=== PATIENT | female | born 1960 | race Caucasian/White ===

== ENCOUNTER 2018-03-10 17:54 | Observation (INO) ==
--- NOTE | 2018-03-10 18:08 | Emergency Department Note ---
Disposition Clinical Impression: Chest pain Qualifiers: Chest pain type: unspecified Qualified Code(s): R07.9 - Chest pain, unspecified Headache Qualifiers: Headache chronicity pattern: unspecified pattern Intractability: not intractable Disposition: Admitted As Inpatient Condition: Fair Referrals: Deniz Duval MD [Primary Care Provider] - Forms: ED Satisfaction Letter Time of Disposition: 20:55 Chest Pain HPI - General Chief Complaint: ED Chest Pain Stated Complaint: chest pain Time Seen by Provider: 03/10/18 18:05 Source: patient Mode of arrival: ambulatory Limitations: no limitations Vital Signs Reviewed: Yes Nursing Notes Reviewed: Yes - History of Present Illness HPI Narrative: 57 y/o F with history of type II DM and HTN presents with complaints of intermittentmidsternal pins and needles chest pain for 3 days, constant GREGORY for 4 days and upper abdominal bloating. She rates the GREGORY as an 8/10 going from the top of her head down the back of her head un-relieved by Tylenol at home. She describes the GREGORY as pounding similar to when she has taken Nitro in the past. Along with the pain she has been feeling extremely fatigued with mild intermittent nausea without vomiting. Patient's DM medication has been in flux over the last few months, changing several times secondary to adverse effects. She last tried Treciba which she states caused similar symptoms of chest pain and was therefore discontinued. She was started on Lantus 02/23 and had been doing well until 3-4 days ago. She notes some dyspnea with the chest pains. Of note, patient's DM medications are handled by a combatant swimmer in [place] and patient has not contacted them concerning these complaints at this time. PMH: Hypertension, diabetes mellitus, obesity. ROS: Positive: As above Negative: fevers, chills, palpitations, vomiting, abdominal pain, diarrhea, trouble urinating, hematuria, hematochezia, swelling, visual changes, numbness, falls or other concerning symptoms. Severity scale (1-10): 8 - Related Data Allergies Allergy/AdvReac Type Severity Reaction Status Date / Time Paroxetine [From Paxil] Allergy Palpitation Verified 03/10/18 18:10 s azithromycin AdvReac See Verified 03/10/18 18:10 Comments dulaglutide [From Trulicity] AdvReac Redness of Verified 10/06/18 18:10 Skin empagliflozin AdvReac See Verified 03/10/18 18:10 [From Jardiance] Comments insulin degludec AdvReac Palpitation Verified 03/10/18 18:10 [From Tresiba FlexTouch s U-100] latex AdvReac See Verified 03/10/18 18:04 Comments NSAIDS (Non-Steroidal AdvReac Chest Pain Verified 03/10/18 18:04 Anti-Inflamma simvastatin AdvReac See Verified 03/10/18 18:04 Comments sitagliptin [From Januvia] AdvReac Rash Verified 03/10/18 18:04 All systems ED: reviewed and negative except as stated. Review of Systems: As Per HPI Chest Pain PMH - Past Medical History Medical history: Reports: diabetes, hyperlipidemia, hypertension, liver disease , thyroid disease, other Surgical history: Reports: , cholecystectomy, hysterectomy Psychiatric history: Reports: anxiety, depression - Social History Smoking Status: Never smoker Alcohol use: Reports: none Drug use: Reports: none Physical Exam Vital Signs Reviewed General: Patient is alert, oriented, and in no acute distress. Head: atraumatic, normocephalic Eye: normal appearance, PERRL, EOMI, no scleral icterus, no conjunctival injection ENT: mucous membranes moist, normal external ear exam Neck: normal inspection, trachea midline, full ROM Chest: normal inspection, symmetric chest rise Respiratory: Good respiratory effort. Bilateral breath sounds are clear without wheezing, crackles, or rhonchi. Cardiovascular: Regular rate and rhythm. No clicks, rubs, gallops, or murmors. Normal heart sounds. Abdomen: Bowel sounds present normoactive x-4 quadrants. Abdomen is soft, nondistended. Mild to moderate subxyphoid/epigastric tenderness. No guarding or rebound. Musculoskeletal: Spontaneously moving all extremities. Skin: warm, dry, intact. Neuro: Alert and oriented x4. Sensation light touch intact. Psych: Patient's affect is appropriate for situation. Course Course Narrative: Holter monitor March 2017: 1. Baseline rhythm is normal sinus throughout recording. 2. Frequent PACs. Rare PVCs. 3. Several episodes of nonsustained SVT- probable atrial tachycardia. 4. No ventricular arrhythmias. No pauses. 5. During pt reported symptoms, rhythm is normal sinus, noemal sinus with 3 beats of SVT, as well as strips that are uninterpretable due to significant artifact. Electronically Signed On 03-21-2017 14:56:15 EDT by Zaira Sukhi EKG dated 03/10/20 1818:17 interpreted as sinus rhythm with a rate of 79. NC 142. QTC 444. Left axis. Left anterior fascicular block. Nonspecific ST-T changes. Rare PAC. No previous EKG for comparison. EKG shows no acute ischemic changes as above. Chest x-ray is unremarkable. Troponin below upper limit of normal. D-dimer is elevated in the 700s. CTA chest shows no acute abnormalities. CT and pelvis without contrast shows no acute abnormalities. Patient's headache persists however, her chest pain has subsided. Given the patient's comorbidities of hypertension, obesity, diabetes and the atypical nature of her chest pain, recommend that she come in to the hospital for rule out ACS. I discussed the above with the admitting hospitalist. He agrees to accept the patient for chest pain rule out ACS. Chest X-Ray 03/10/18 18:32 IMPRESSION: No acute process. D/ / Maldonado Brewster MD / Maldonado Brewster MD Interpreting Provider: Maldonado Brewster MD Abdomen/Pelvis CT 03/10/18 18:57 IMPRESSION: No acute abnormality in the chest, abdomen or pelvis. No acute abnormality or aneurysm of the thoracic aorta. No acute central pulmonary emboli. Low lung volumes. Mild prominence of the right renal collecting system, nonspecific. D/ / Tomas Hewitt MD / Tomas Hewitt MD Interpreting Provider: Tomas Hewitt MD Chest CTA 03/10/18 19:26 IMPRESSION: No acute abnormality in the chest, abdomen or pelvis. No acute abnormality or aneurysm of the thoracic aorta. No acute central pulmonary emboli. Low lung volumes. Mild prominence of the right renal collecting system, nonspecific. D/ / Tomas Hewitt MD / Tomas Hewitt MD Interpreting Provider: Tomas Hewitt MD Vital Signs Temperature 98.6 F 03/10/18 18:00 Pulse Rate 87 03/10/18 18:00 Respiratory Rate 18 03/10/18 18:00 Blood Pressure 149/77 03/10/18 18:00 O2 Sat by Pulse Oximetry 97 03/10/18 18:00 Temperature 98.6 F 03/10/18 18:32 Pulse Rate 77 03/10/18 21:05 Respiratory Rate 18 03/10/18 21:05 Blood Pressure 123/58 03/10/18 21:05 O2 Sat by Pulse Oximetry 98 03/10/18 21:05 Oxygen Delivery Oxygen Delivery Room Air Chest Pain - Lab Data Result diagrams: 03/10/18 18:42 03/10/18 18:26 Lab Results 03/10/18 03/10/18 03/10/18 Range/Units 18:26 18:26 18:32 WBC (4.3-11.1) K/mcL RBC (3.82-4.97) M/mcL Hgb (11.5-15.4) g/dL Hct (35.3-44.9) % MCV (83.0-100.0) fL MCH (28.0-33.3) pg MCHC (31.6-35.5) g/dL RDW (11.5-14.5) % Plt Count (140-400) K/mcL MPV (9.4-12.4) fL Immature Gran % (0-4) % Seg Neutrophils % % Lymphocytes % % Monocytes % % Eosinophils % % Basophils % % Neutrophils # (1.6-8.9) K/mcL Lymphocytes # (0.6-4.6) K/mcL Monocytes # (0.0-1.3) K/mcL Eosinophils # (0.0-0.6) K/mcL Basophils # (0.0-0.2) K/mcL PT 10.9 (9.4-12.1) Seconds INR 1.0 APTT 29.5 (26.0-36.0) Seconds D-Dimer 736 H (0-500) ng/mLFEU Sodium 137 (136-145) mEq/L Potassium 4.0 (3.5-5.1) mEq/L Chloride 102 (98-107) mEq/L Carbon Dioxide 27 (23-29) mEq/L BUN 23 H (6-20) mg/dL Creatinine 0.91 (0.60-1.20) mg/dL Est GFR ( Amer) > 60 (> 60) Est GFR (Non-Af Amer) > 60 (> 60) BUN/Creatinine Ratio 25 (6-26) Glucose 194 H (70-105) mg/dL Calculated Osmolality 293 (280-300) Calcium 9.8 (8.6-10.3) mg/dL Total Bilirubin 0.4 (0.3-1.0) mg/dL Direct Bilirubin 0.1 (0.0-0.2) mg/dL Indirect Bilirubin 0.3 (0.0-1.2) mg/dL AST 10 L (13-39) Units/L ALT 13 (7-52) Units/L Alkaline Phosphatase 67 (34-104) Units/L Troponin I < 0.03 (< 0.04) ng/mL B-Natriuretic Peptide 51 (Less than 100) pg/mL Serum Total Protein 6.3 L (6.4-8.9) g/dL Albumin 4.3 (3.5-5.7) g/dL Globulin 2.0 L (2.4-3.5) g/dL Albumin/Globulin Ratio 2.2 (1.1-2.2) Lipase 26 (11-82) Units/L 03/10/18 Range/Units 18:42 WBC 10.8 (4.3-11.1) K/mcL RBC 4.22 (3.82-4.97) M/mcL Hgb 11.2 L (11.5-15.4) g/dL Hct 35.3 (35.3-44.9) % MCV 83.6 (83.0-100.0) fL MCH 26.5 L (28.0-33.3) pg MCHC 31.7 (31.6-35.5) g/dL RDW 14.5 (11.5-14.5) % Plt Count 238 (140-400) K/mcL MPV 11.1 (9.4-12.4) fL Immature Gran % 0.4 (0-4) % Seg Neutrophils % 64.2 % Lymphocytes % 23.5 % Monocytes % 5.2 % Eosinophils % 6.3 % Basophils % 0.4 % Neutrophils # 6.9 (1.6-8.9) K/mcL Lymphocytes # 2.5 (0.6-4.6) K/mcL Monocytes # 0.6 (0.0-1.3) K/mcL Eosinophils # 0.7 H (0.0-0.6) K/mcL Basophils # 0.0 (0.0-0.2) K/mcL PT (9.4-12.1) Seconds INR APTT (26.0-36.0) Seconds D-Dimer (0-500) ng/mLFEU Sodium (136-145) mEq/L Potassium (3.5-5.1) mEq/L Chloride (98-107) mEq/L Carbon Dioxide (23-29) mEq/L BUN (6-20) mg/dL Creatinine (0.60-1.20) mg/dL Est GFR ( Amer) (> 60) Est GFR (Non-Af Amer) (> 60) BUN/Creatinine Ratio (6-26) Glucose (70-105) mg/dL Calculated Osmolality (280-300) Calcium (8.6-10.3) mg/dL Total Bilirubin (0.3-1.0) mg/dL Direct Bilirubin (0.0-0.2) mg/dL Indirect Bilirubin (0.0-1.2) mg/dL AST (13-39) Units/L ALT (7-52) Units/L Alkaline Phosphatase (34-104) Units/L Troponin I (< 0.04) ng/mL B-Natriuretic Peptide (Less than 100) pg/mL Serum Total Protein (6.4-8.9) g/dL Albumin (3.5-5.7) g/dL Globulin (2.4-3.5) g/dL Albumin/Globulin Ratio (1.1-2.2) Lipase (11-82) Units/L Heart Score - Score History: Slightly Suspicious EKG: Non Specific repolarisation Disturbance Age: 45-65 Risk Factors: Equal/Greater than 3 risk factor or history of atherosclerotic disease Troponin: Less than normal limit HEART Score Total: 4 Attestation Statement - Attestation Attestation: Patient was seen with resident physician. I reviewed the history, physical, assessment and plan, and agree with the findings. I also personally evaluated this patient and had [id number] time with this patient. 57-year-old female presents emergency Department chief complaint of headache chest pain and epigastric pain. Patient states that she gets these symptoms often when she has changes to her type 2 diabetes medicines. She said she goes through changes often. Said the headache has been ongoing for a couple of days. She says it feels like she took a nitroglycerin in terms of its nature. The chest pain she describes is midsternal sharp radiating through to the back and associated with shortness of breath and no diaphoresis. The epigastric pain she said gets worse when she does need she gets increased bloating with focus Fernandez in the epigastric area, she says she has had problems with that spot since changing one of her diabetic medications. No diarrhea no vomiting. Review of systems as above remainder negative. Physical exam vital signs are stable. ENT unremarkable. Head is nontender. No nuchal rigidity. Heart regular rhythm and rate. Chest wall is stable. Lungs are clear. Abdomen is soft there is tenderness in midepigastric area without guarding rigidity. Bowel sounds are present. Extremities unremarkable neurologically intact and skin no rashes. ED course we will do a cardiac workup in addition to an abdominal pain workup. I am not convinced this is cardiac in nature as could just be medication reaction. Her EKG does not show acute ischemic changes. I will also check a d- dimer for possibilities of PE. D-dimer was positive. CTA of the abdomen and CT of the pelvis are negative for abnormalities. Patient's pain was somewhat improved but we did do several doses of medication. With the patient's age and risk factors of diabetes and this history of chest pain we opted to admit the patient we did speak with the patient about this. She agreed for admission. I will contact the hospitalist service to arrange for admission. Hemodynamically she remained stable in the emergency department and slowly improving throughout her stay. Agree with resident physician assessment and plan.
[2018-03-10 18:46] LABS: Basophils % 0.4 %; Eosinophils # 0.7 K/mcL (0.0-0.6); Eosinophils % 6.3 %; Hematocrit 35.3 % (35.3-44.9); Hemoglobin 11.2 g/dL (11.5-15.4); Immature Granulocytes % 0.4 % (0-4); Lymphocytes # 2.5 K/mcL (0.6-4.6); Lymphocytes % 23.5 %; Mean Corpuscular HGB Conc 31.7 g/dL (31.6-35.5); Mean Corpuscular Hemoglobin 26.5 pg (28.0-33.3); Mean Corpuscular Volume 83.6 fL (83.0-100.0); Mean Platelet Volume 11.1 fL (9.4-12.4); Monocytes # 0.6 K/mcL (0.0-1.3); Monocytes % 5.2 %; Neutrophils # 6.9 K/mcL (1.6-8.9); Platelet Count 238 K/mcL (140-400); Red Blood Count 4.22 M/mcL (3.82-4.97); Red Cell Distribution Width 14.5 % (11.5-14.5); Segmented Neutrophils % 64.2 %
[2018-03-10 18:52] LABS: Prothrombin Time 10.9 Seconds (9.4-12.1)
[2018-03-10] MEDS ORDERED: Pantoprazole 40 MG VIAL IVP ONE (18:52)
[2018-03-10 18:55] LABS: Activated Partial Thrombo Time 29.5 Seconds (26.0-36.0)
[2018-03-10 19:06] LABS: BUN/Creatinine Ratio 25 (6-26); Blood Urea Nitrogen 23 mg/dL (6-20); Calcium 9.8 mg/dL (8.6-10.3); Carbon Dioxide 27 mEq/L (23-29); Chloride 102 mEq/L (98-107); Glucose 194 mg/dL (70-105); Osmolality,Calculated 293 (280-300); Sodium 137 mEq/L (136-145); Troponin I < 0.03 ng/mL (< 0.04); eGFR For Non-African Americans > 60 (> 60)
[2018-03-10 19:23] LABS: Alanine Aminotransferase 13 Units/L (7-52); Albumin 4.3 g/dL (3.5-5.7); Albumin/Globulin Ratio 2.2 (1.1-2.2); Alkaline Phosphatase 67 Units/L (34-104); Aspartate Amino Transferase 10 Units/L (13-39); Bilirubin,Direct 0.1 mg/dL (0.0-0.2); Bilirubin,Indirect 0.3 mg/dL (0.0-1.2); Bilirubin,Total 0.4 mg/dL (0.3-1.0); Lipase 26 Units/L (11-82); Total Protein 6.3 g/dL (6.4-8.9)
[2018-03-10] MEDS ORDERED: Isovue-370 500 ML INFUS..BTL IV ONE (19:26)
[2018-03-10] MEDS ORDERED: Aspirin 325 MG TABLET PO ONE (20:54)
[2018-03-11] MEDS ORDERED: Naloxone 0.4 MG/ML INJ IVP PRN (00:09)
[2018-03-11] MEDS ORDERED: D5% in Water 1,000 ML IVC PRN (00:13)
[2018-03-11] MEDS ORDERED: Dextrose Gel 15 GM/37.5 ML TUBE PO PRN ×2 (00:13)
[2018-03-11] MEDS ORDERED: *HR* Dextrose 50 % in Water (Syg) 50 ML SYRINGE IVP PRN (00:13)
[2018-03-11] MEDS ORDERED: Insulin DETEMIR 100 UNIT/ML X5UNITS SQ SCH (00:15)
[2018-03-11 01:15] LABS: Hematocrit 30.9 % (35.3-44.9); Hemoglobin 9.7 g/dL (11.5-15.4); Mean Corpuscular HGB Conc 31.4 g/dL (31.6-35.5); Mean Corpuscular Hemoglobin 26.3 pg (28.0-33.3); Mean Corpuscular Volume 83.7 fL (83.0-100.0); Platelet Count 198 K/mcL (140-400); Red Blood Count 3.69 M/mcL (3.82-4.97); Red Cell Distribution Width 14.6 % (11.5-14.5)
[2018-03-11 01:28] LABS: BUN/Creatinine Ratio 22 (6-26); Blood Urea Nitrogen 20 mg/dL (6-20); Calcium 9.4 mg/dL (8.6-10.3); Carbon Dioxide 25 mEq/L (23-29); Chloride 103 mEq/L (98-107); Glucose 211 mg/dL (70-105); Osmolality,Calculated 291 (280-300); Sodium 136 mEq/L (136-145); eGFR For Non-African Americans > 60 (> 60)
[2018-03-11] MEDS ORDERED: Acetaminophen 325 MG TABLET PO PRN (01:43)
[2018-03-11] MEDS ORDERED: Insulin LISPRO 300 UNITS/3 ML VIAL SQ SCH (06:00)
--- NOTE | 2018-03-11 08:25 | Internal Med History&Physical ---
Date of Encounter: 03/10/18 Time of Encounter: 23:15 Internal Medicine - H&P: HPI Chief complaint: Chest pain Admitted From: Emergency Dept Plans for Post Hospital Care: Home History of present illness: Ms. Jha is a 57 year old female Patient presented to the ER with a 2-3 day history of headache and shap pains in the center of her chest. She says that it feels like a sharp stabbing pain that goes straight through. Worse with inspiration. 2 days ago it seemed to be improving, but she noticed that she was more tired as well. She spent the majority of the day resting, but at dinner time she took her nightly insulin at around 6pm and about 1 hour later she had "jumping movements with heart palpitations." She went to bed that night and woke up the morning of the day of admission and while working outside with her she had the chest pain again. She was concerned at this point, and decided to come into the hospital for evaluation. In the ER, CBC, BMP and troponin were within normal limits. Chest x-ray showed no acute process. D dimer was elevated but chest CT angio was negative for PE. EKG showed no acute ischemic changes. She was admitted for further monitoring and workup. Upon my assessment patient states that her pain has resolved.She denies nausea, vomiting, diarrhea, constipation, and abdominal pain. She states that she thinks that she ad a stress test about 1 year ago in [place], but does not remember the result. She does not think she has history of heart problems. She also states that her primary doctor has been trying to adjust her diabetes medicine, as she has had several complications with some of the injectable type insulins. She says that Trulicity caused an ulcer to develop on her esophagus. She currently takes lantus and mealtime insulin which have not caused problems for her yet. Past Med Surg Social Fam HX - Past Medical History Medical history: diabetes, hyperlipidemia, hypertension, other Additional medical history: DJD Psychiatric history: anxiety, depression - Past Surgical History Surgical History: , cholecystectomy, hysterectomy, knee replacement, orthopedic, other Additional surgical history: tumor removed from foot. - Social History Smoking Status: Former smoker Smokeless Tobacco Status: No Alcohol use: none Drug use: none Internal Medicine - H&P: Meds Glimepiride [Amaryl] 4 mg PO BID 03/11/18 [History] Lisinopril-HCTZ 20-12.5 [Prinzide 20-12.5] 1 each PO DAILY 03/11/18 [History] Metoprolol Tartrate 50 mg PO BID 03/11/18 [History] Omeprazole [PriLOSEC] 40 mg PO DAILY 03/11/18 [History] Rosuvastatin Calcium [Crestor] 20 mg PO HS 03/11/18 [History] 3 Allergy/AdvReac Type Severity Reaction Status Date / Time Paroxetine [From Paxil] Allergy Palpitation Verified 03/10/18 18:10 s azithromycin AdvReac See Verified 03/10/18 18:10 Comments dulaglutide [From Trulicity] AdvReac Redness of Verified 03/10/18 18:10 Skin empagliflozin AdvReac See Verified 03/10/18 18:10 [From Jardiance] Comments insulin degludec AdvReac Palpitation Verified 03/10/18 18:10 [From Tresiba FlexTouch s U-100] latex AdvReac See Verified 03/10/18 18:04 Comments NSAIDS (Non-Steroidal AdvReac Chest Pain Verified 03/10/18 18:04 Anti-Inflamma simvastatin AdvReac See Verified 03/10/18 18:04 Comments sitagliptin [From Januvia] AdvReac Rash Verified 03/10/18 18:04 All Systems PM: A 10-system review of systems was performed and is negative for pertinent findings except as documented above in the HPI. - Constitutional Vitals: Temp Pulse Resp BP Pulse Ox 97.8 F 71 16 116/69 97 03/11/18 08:04 03/11/18 08:04 03/11/18 08:04 03/11/18 08:04 03/11/18 08:04 General appearance: Present: cooperative, A&O X 3, pleasant, no acute distress, answers questions appropriately Exam: As above. - Head Head exam: Present: normal inspection - Eye Eye exam: Present: EOMI, normal appearance - Neck Neck exam general surgery: Present: full ROM - Respiratory Respiratory exam: Present: CTAB. Absent: chest wall tenderness, decreased breath sounds, respiratory distress, wheezes - Cardiovascular Cardiovascular exam: Present: RRR. Absent: diastolic murmur, systolic murmur - GI/Abdominal GI/Abdominal exam: Present: normal bowel sounds, soft. Absent: tenderness - Extremities Exam Extremities exam: Present: warm, radial pulses palpable and symmetrical. Absent : pedal edema, tenderness - Neurological Exam Neurological exam: Present: no focal deficits, strengths equal and symetr throughout. Absent: motor sensory deficit, facial droop, speech deficit - Skin Skin exam: Present: dry, normal color, warm Internal Med - H&P Results - Labs CBC & Chem 7: 03/11/18 00:46 03/11/18 00:46 Labs: Short CBC 03/11/18 Range/Units 00:46 WBC 9.9 (4.3-11.1) K/mcL Hgb 9.7 L D (11.5-15.4) g/dL Hct 30.9 L (35.3-44.9) % Plt Count 198 (140-400) K/mcL BMP 03/11/18 00:46 Sodium 136 Potassium 4.0 Chloride 103 Carbon Dioxide 25 BUN 20 Creatinine 0.93 Glucose 211 H Calcium 9.4 Cardiac Enzymes 03/11/18 03/11/18 Range/Units 00:46 06:02 Troponin I < 0.03 < 0.03 (< 0.04) ng/mL - Assessment and plan (1) Chest pain Current Visit: Yes Status: Acute Assessment and plan: Now resolved. Trops negative, EKG unremarkable. Continue to trend troponins wind up worker Echocardiogram in AM Recent stress test 1 year ago in [place]. Qualifiers: Chest pain type: unspecified Qualified Code(s): R07.9 - Chest pain, unspecified (2) Headache Current Visit: Yes Status: Acute Assessment and plan: Now resolved. Acetaminophen for pain. Qualifiers: Headache chronicity pattern: unspecified pattern Intractability: not intractable Qualified Code(s): R51 - Headache (3) Diabetes Current Visit: Yes Status: Acute Assessment and plan: Sliding scale insulin with meals and at night time babysitter sugars Basal insulin at night. Diabetic/cardiac diet when eating. Qualifiers: Diabetes mellitus penitentiary insulin use: with intermediate school teacher use Diabetes mellitus complication status: without complication Qualified Code(s): E11.9 - Type 2 diabetes mellitus without complications; Z79.4 - residential (current) use of insulin (4) DVT prophylaxis Current Visit: Yes Status: Acute Assessment and plan: Heparin subq. - Time Spent With Patient Total time spent is greater than 50% in coordination of care (as documented) at patient's floor/unit and/or counseling patient: Greater than 35 minutes
[2018-03-11 12:20] VITALS: BP 134/89
--- NOTE | 2018-03-11 13:04 | Discharge Summary ---
- NOTES TO OUTPATIENT PROVIDER Notes to Outpatient Provider: f/u with PCP in one week. Please go for out pt exercise stress test Orders not resulted at time of discharge: Pending orders 03/11/18 00:14 EV echocardiogram Routine Date of Encounter: 03/11/18 Time of Encounter: 12:56 - Discharge Diagnosis (1) Chest pain Priority: Primary Status: Acute Qualifiers: Chest pain type: unspecified Qualified Code(s): R07.9 - Chest pain, unspecified (2) Diabetes Priority: Secondary Status: Acute Qualifiers: Diabetes mellitus [facility] insulin use: with computer help desk representative use Diabetes mellitus complication status: without complication Qualified Code(s): E11.9 - Type 2 diabetes mellitus without complications; Z79.4 - business risk analyst (current) use of insulin (3) Hyperlipidemia Priority: Secondary Status: Acute Qualifiers: Hyperlipidemia type: unspecified Qualified Code(s): E78.5 - Hyperlipidemia , unspecified (4) HTN (hypertension) Priority: Secondary Status: Acute Qualifiers: Hypertension type: essential hypertension Qualified Code(s): I10 - Essential (primary) hypertension Hospital course: Ms. Jha is a 57 year old female with known HTN,HLD, and DM2 who presented to ER last night with 2-3 days h/o headache and shap pains in the center of her chest. In the ER, CBC, BMP and troponin were within normal limits. Chest x-ray showed no acute process. D dimer was elevated but chest CT angio was negative for PE. EKG showed no acute ischemic changes. She was admitted in the hospital and placed her on tele , checked serial troponin which were negative. Patient did mention that she was on metformin and Amaryl for her DM2 and her die tripper recently added Lantus to her regimen, since then she noticed these changes headache and chest discomfort with some fluctuations in blood sugars. So recommend to stop taking Amaryl. Since she has multiple risk factors recommend outpatient stress test and follow-up with the primary care doctor for the results. Patient was in agreement with the above plan - Time Spent with Patient Total time spent providing and/or coordinating discharge services: - Discharge Medications Prescriptions: Insulin Glargine [Lantus] 15 unit SQ HS #1 mls Home Medications: Insulin Glargine [Lantus] 15 unit SQ HS #1 mls 03/11/18 [Rx] Lisinopril-HCTZ 20-12.5 [Prinzide 20-12.5] 1 each PO DAILY 03/11/18 [History] Metoprolol Tartrate 50 mg PO BID 03/11/18 [History] Omeprazole [PriLOSEC] 40 mg PO DAILY 03/11/18 [History] Rosuvastatin Calcium [Crestor] 20 mg PO HS 03/11/18 [History] Allergies/Adverse Reactions: 3 Allergy/AdvReac Type Severity Reaction Status Date / Time Paroxetine [From Paxil] Allergy Palpitation Verified 03/10/18 18:10 s azithromycin AdvReac See Verified 03/10/18 18:10 Comments dulaglutide [From Trulicity] AdvReac Redness of Verified 03/10/18 18:10 Skin empagliflozin AdvReac See Verified 03/10/18 18:10 [From Jardiance] Comments insulin degludec AdvReac Palpitation Verified 03/10/18 18:10 [From Tresiba FlexTouch s U-100] latex AdvReac See Verified 03/10/18 18:04 Comments NSAIDS (Non-Steroidal AdvReac Chest Pain Verified 03/10/18 18:04 Anti-Inflamma simvastatin AdvReac See Verified 03/10/18 18:04 Comments sitagliptin [From Januvia] AdvReac Rash Verified 03/10/18 18:04 Date of admission: 03/10/18 21:31 Primary care physician: Deniz Duval MD - Constitutional Vitals: Temp Pulse Resp BP Pulse Ox 98.6 F 68 16 134/89 97 03/11/18 12:20 03/11/18 12:20 03/11/18 12:20 03/11/18 12:20 03/11/18 12:20 General appearance: Present: cooperative, A&O X 3, pleasant, no acute distress, answers questions appropriately Exam: As above. - Head Head exam: Present: atraumatic, normal inspection - Respiratory Respiratory exam: Present: decreased breath sounds. Absent: rales, respiratory distress, rhonchi, wheezes - Cardiovascular Cardiovascular exam: Present: RRR, +S1, +S2. Absent: tachycardia - GI/Abdominal GI/Abdominal exam: Present: normal bowel sounds, soft. Absent: rebound, rigid, tenderness - Extremities Exam Extremities exam: Absent: calf tenderness, pedal edema, tenderness - Back Exam Back exam: Absent: CVA tenderness (L), CVA tenderness (R) - Neurological Exam Neurological exam: Present: alert, oriented X3 - Psychiatric Psychiatric exam: Present: normal affect, normal mood - Patient Status Disposition: Home, Self-Care Condition: Good Overall status at discharge: patient is back to baseline - Ambulatory Orders Ambulatory Orders: SP exercise nuclear stress Time Frame: 3 Days, Facility: [facility], Location: Cardiopulmonary Svc - Discharge Instructions Follow Up With: Deniz Duval MD [Primary Care Provider] - (unable to schedule follow up appointment due to office being closed. Please call monday to schedule appointment for 1 week from date of discharge. ) - Diet and Activity Activity: increase activity as tolerated Diet: low salt diet
[2018-03-11] MEDS ORDERED: *HR* Heparin 5,000 UNIT/ML VIAL SQ SCH (18:00)
--- NOTE | 2018-03-13 17:31 | Electrocardiograph Report ---
[place] [id number] Test Date: 2018-03-10 Pat Name: Tiki Jha Department: [id number] Room: 3B36 Gender: F Third Mate: : 1960 Requested By: Raj Sanders Order Number: [id number] Reading MD: Tim Guerra Measurements Intervals [place] Rate: 79 P: 62 RI: 142 QRS: -7 QRSD: 90 T: 67 QT: 387 QTc: 444 Interpretive Statements Sinus rhythm Ventricular premature complex Low voltage, precordial leads Electronically Signed On 03-13-2018 17:29:43 EDT by Tim Guerra
== END 2018-03-11 13:25 | disposition home or self-care (01) ==
LOC: 3BNU 17:54 → EMEROOARM 17:54 → SUATTDRO 21:31 → 3BNU 21:49
PROVIDERS: ADMIT Family Medicine; ATTEND Family Medicine